=== PATIENT | female | born 1945 | race Caucasian/White ===

== ENCOUNTER 2018-06-07 13:28 | Emergency (ER) | payer MEDICARE ==
[~2018-06-07] VITALS: Ht 152.4 cm; Wt 53.1 kg
[~2018-06-07 13:28] MED LIST: AMIT25 PO; CALCA500CH PO; CHOL10002 PO; CITA20 PO; CLON1 PO; CYCL10 PO; DOXY100 PO; ERGO50000 PO; HYDACE10B PO; HYDACE5 PO; HYDCHL25 PO; LORA.5 PO; LORA1 PO; MECL25 PO; METO50 PO; OMEP20ER PO; OXYACE5T PO; OXYC5 PO; Omeprazole20 M1 PO; PARO20 PO; PARO30 PO; PRAV20 PO; RANI150 PO; RXALBOI INH; RXOXYACE PO; XARELTO15 MG PO; XARELTO20 MG PO
[2018-06-07 15:13] LABS: BASOPHILS ABSOLUTE AUTO 0.05 K/mm3 (0.00-0.23); BASOPHILS PERCENT AUTO 1 % (0-2); EOSINOPHILS PERCENT AUTO 7 % (0-6); Hematocrit 41.8 % (33.0-51.0); Hemoglobin 13.7 g/dL (11.5-16.0); IMMATURE GRAN ABSOLUTE AUTO 0.01 K/mm3 (0.00-0.10); IMMATURE GRAN PERCENT AUTO 0 % (0-1); LYMPHOCYTES ABSOLUTE AUTO 2.29 K/mm3 (0.84-5.20); LYMPHOCYTES PERCENT AUTO 38 % (21-46); MONOCYTES ABSOLUTE AUTO 0.57 K/mm3 (0.16-1.47); MONOCYTES PERCENT AUTO 10 % (4-13); Mean Corpuscular HGB 32.5 pg (26.0-34.0); Mean Corpuscular HGB Conc 32.8 g/dL (31.5-36.5); Mean Corpuscular Volume 99 fL (80-100); Mean Platelet Volume 10.8 fL (9.1-12.4); NEUTROPHILS ABSOLUTE AUTO 2.71 K/mm3 (1.96-9.15); NEUTROPHILS PERCENT AUTO 45 % (41-73); Platelet Count 217 K/mm3 (150-400); RDW Coefficient Variation 13.8 % (11.7-14.2); RDW Standard Deviation 49.9 fL (35.1-46.3); Red Blood Cell Count 4.21 M/mm3 (3.80-5.20); White Blood Cell Count 6.03 K/mm3 (4.00-11.30)
[2018-06-07 15:40] LABS: Troponin I <0.015 ng/mL (0.000-0.040)
[2018-06-07 15:41] LABS: Alanine Aminotransfer (ALT/SGP 17 U/L (12-78); Albumin, Blood 3.4 g/dL (3.4-5.0); Albumin/Globulin Ratio 1.1 (0.8-1.8); Alk Phos 67 U/L (50-136); Anion Gap 6 mmol/L (6-16); Aspartate Aminotrans (AST/SGOT 17 U/L (12-37); Bilirubin, Total 0.1 mg/dL (0.1-1.0); Blood Urea Nitrogen 26 mg/dL (8-24); Bun/Creatinine Ratio 28.9 (12.0-20.0); CO2, Blood 25 mmol/L (21-32); Calcium, Blood 8.6 mg/dL (8.5-10.1); Chloride, Blood 113 mmol/L (98-108); Globulin, Blood 3.1 g/dL (2.2-4.0); Glomerular Filtration Rate >60 (60-); Glucose, Blood 72 mg/dL (70-99); Potassium, Blood 3.7 mmol/L (3.5-5.5); Sodium, Blood 144 mmol/L (136-145); Total Protein, Blood 6.5 g/dL (6.4-8.2)
[2018-06-07] MEDS ORDERED: Buspirone HCl30 MG PO (15:54)
[2018-06-07] MEDS ORDERED: SPIR25 PO (15:54)
[2018-06-07] MEDS ORDERED: TOPI100 PO (15:54)
[2018-06-07] MEDS ORDERED: Ultram50 MG PO (16:14)
[2018-06-07] MEDS ORDERED: Keflex500 MG PO (16:14)
== END 2018-06-07 16:25 | disposition home or self-care (01) ==
LOC: ER 13:28
PROVIDERS: Physician Assistant
DX: L03.116 Cellulitis of left lower limb (principal); F17.210 Nicotine dependence, cigarettes, uncomplicated; I10 Essential (primary) hypertension; M81.0 Age-related osteoporosis without current pathological fracture; J44.9 Chronic obstructive pulmonary disease, unspecified; E78.5 Hyperlipidemia, unspecified; Z86.718 Personal history of other venous thrombosis and embolism; Z86.711 Personal history of pulmonary embolism; Z79.2 Long term (current) use of antibiotics; Z79.899 Other long term (current) drug therapy
CPT/HCPCS: 36415; 71046; 80053; 83880; 84484; 85025; 93005; 93010; 93970; 99284-25

== ENCOUNTER 2018-06-16 16:26 | Emergency (ER) | payer MEDICARE ==
[~2018-06-16] VITALS: Ht 160 cm; Wt 53.1 kg
[~2018-06-16 16:26] MED LIST changes: +Buspirone HCl30 MG PO; +Keflex500 MG PO; +SPIR25 PO; +TOPI100 PO; +Ultram50 MG PO
[2018-06-16] MEDS ORDERED: VERA80 PO (16:57)
[2018-06-16] MEDS ORDERED: Ferrous Sulfat325 M2 PO (16:58)
[2018-06-16] MEDS ORDERED: CHOL10002 (16:58)
[2018-06-16] MEDS ORDERED: Butalbital-Asa1 EAC1 (16:59)
[2018-06-16] MEDS ORDERED: ALEN70 PO (17:01)
[2018-06-16] MEDS ORDERED: BACL10 PO (17:01)
[2018-06-16 17:15] LABS: BASOPHILS ABSOLUTE AUTO 0.06 K/mm3 (0.00-0.23); BASOPHILS PERCENT AUTO 1 % (0-2); EOSINOPHILS ABSOLUTE AUTO 0.62 K/mm3 (0.00-0.68); EOSINOPHILS PERCENT AUTO 8 % (0-6); Hematocrit 42.7 % (33.0-51.0); Hemoglobin 14.1 g/dL (11.5-16.0); IMMATURE GRAN ABSOLUTE AUTO 0.02 K/mm3 (0.00-0.10); IMMATURE GRAN PERCENT AUTO 0 % (0-1); LYMPHOCYTES ABSOLUTE AUTO 2.13 K/mm3 (0.84-5.20); LYMPHOCYTES PERCENT AUTO 29 % (21-46); MONOCYTES ABSOLUTE AUTO 0.59 K/mm3 (0.16-1.47); MONOCYTES PERCENT AUTO 8 % (4-13); Mean Corpuscular HGB 32.3 pg (26.0-34.0); NEUTROPHILS ABSOLUTE AUTO 3.98 K/mm3 (1.96-9.15); NEUTROPHILS PERCENT AUTO 54 % (41-73); Platelet Count 249 K/mm3 (150-400); RDW Standard Deviation 50.8 fL (35.1-46.3); Red Blood Cell Count 4.37 M/mm3 (3.80-5.20)
[2018-06-16 17:30] LABS: Mean Corpuscular Volume 98 fL (80-100)
[2018-06-16 17:35] LABS: Alanine Aminotransfer (ALT/SGP 17 U/L (12-78); Albumin, Blood 3.4 g/dL (3.4-5.0); Albumin/Globulin Ratio 1.1 (0.8-1.8); Alk Phos 69 U/L (50-136); Anion Gap 7 mmol/L (6-16); Aspartate Aminotrans (AST/SGOT 13 U/L (12-37); Bilirubin, Total 0.1 mg/dL (0.1-1.0); Blood Urea Nitrogen 19 mg/dL (8-24); Bun/Creatinine Ratio 21.9 (12.0-20.0); CO2, Blood 22 mmol/L (21-32); Calcium, Blood 8.9 mg/dL (8.5-10.1); Chloride, Blood 114 mmol/L (98-108); Creatinine, Blood 0.87 mg/dL (0.40-1.00); Globulin, Blood 3.2 g/dL (2.2-4.0); Glomerular Filtration Rate >60 (60-); Glucose, Blood 83 mg/dL (70-99); Potassium, Blood 3.9 mmol/L (3.5-5.5); Sodium, Blood 143 mmol/L (136-145); Total Protein, Blood 6.6 g/dL (6.4-8.2); Troponin I <0.015 ng/mL (0.000-0.040)
== END 2018-06-16 18:10 | disposition home or self-care (01) ==
LOC: ER 16:26
PROVIDERS: Physician Assistant
DX: R06.00 Dyspnea, unspecified (principal); R60.0 Localized edema; I10 Essential (primary) hypertension; E78.5 Hyperlipidemia, unspecified; J44.9 Chronic obstructive pulmonary disease, unspecified; Z79.899 Other long term (current) drug therapy; F17.210 Nicotine dependence, cigarettes, uncomplicated
CPT/HCPCS: 36415; 71046; 80053; 83880; 84484; 85025; 93005; 93010; 94640; 99285-25

== ENCOUNTER → 2018-09-20 | Outpatient (CLI) | payer MEDICARE ==
[~2018-09-20] MED LIST changes: +ALEN70 PO; +BACL10 PO; +Butalbital-Asa1 EAC1; +CHOL10002; +Ferrous Sulfat325 M2 PO; +VERA80 PO
== END ==
LOC: LAB 07:00 → LAB SHORT 07:00
DX: R10.84 Generalized abdominal pain (principal); R19.7 Diarrhea, unspecified
CPT/HCPCS: 87015; 87045; 87046; 87205; 87899

== ENCOUNTER 2020-06-13 13:39 | Emergency (ER) | payer MEDICARE ==
[~2020-06-13] VITALS: Ht 160 cm; Wt 52.2 kg
== END 2020-06-13 17:26 | disposition home or self-care (01) ==
LOC: ER 13:39
DX: K59.00 Constipation, unspecified (principal); I10 Essential (primary) hypertension; E78.5 Hyperlipidemia, unspecified; J44.9 Chronic obstructive pulmonary disease, unspecified; F17.210 Nicotine dependence, cigarettes, uncomplicated; Z79.01 Long term (current) use of anticoagulants; Z79.899 Other long term (current) drug therapy; Z86.718 Personal history of other venous thrombosis and embolism
CPT/HCPCS: 74018; 99283-25; A9270

== ENCOUNTER 2021-07-09 22:19 | Emergency (ER) | payer MEDICARE ==
[~2021-07-09] VITALS: Ht 170.2 cm; Wt 53.1 kg
[2021-07-09] MEDS ORDERED: BACTRIM 400-801 EACH PO (22:48)
[2021-07-09] MEDS ORDERED: Mupirocin22 GM TOP (22:48)
[2021-07-09] MEDS ORDERED: CEPH500 PO (22:48)
== END 2021-07-09 23:06 | disposition home or self-care (01) ==
LOC: ER 22:19
DX: L03.012 Cellulitis of left finger (principal); I10 Essential (primary) hypertension; F17.210 Nicotine dependence, cigarettes, uncomplicated; Z79.899 Other long term (current) drug therapy
CPT/HCPCS: A9270

== ENCOUNTER 2021-08-04 13:49 | Emergency (ER) | payer MEDICARE ==
[~2021-08-04] VITALS: Ht 160 cm; Wt 53.1 kg
[~2021-08-04 13:49] MED LIST changes: +BACTRIM 400-801 EACH PO; +CEPH500 PO; +Mupirocin22 GM TOP
[2021-08-04] MEDS ORDERED: CEPH500 PO (16:00)
== END 2021-08-04 16:08 | disposition home or self-care (01) ==
LOC: ER 13:49
DX: L03.012 Cellulitis of left finger (principal); I10 Essential (primary) hypertension; E78.5 Hyperlipidemia, unspecified; J44.9 Chronic obstructive pulmonary disease, unspecified; F17.210 Nicotine dependence, cigarettes, uncomplicated; Z79.899 Other long term (current) drug therapy
CPT/HCPCS: 73140; 99283-25

== ENCOUNTER → 2022-01-03 | Outpatient (CLI) | payer MEDICARE | LOC: LAB SHORT 13:38 → LAB 13:38 | DX: L30.9 Dermatitis, unspecified (principal) | CPT/HCPCS: 88305; 88312 ==

== ENCOUNTER 2024-06-12 08:52 | Day surgery (SDC) | payer MEDICARE ==
[~2024-06-12] VITALS: Ht 160 cm; Wt 51.6 kg
[~2024-06-12 08:52] MED LIST changes: +Balanced Salt Epinephrine Irrigation Solution 500 mL IR SCH; +Buspirone HCl15 MG PO; +DULO60 PO; +FUROSEMIDE20 MG PO; +HYDROCODONE-AC1 EA10 PO; +K-Dur10 MEQ PO; +Lidocaine HCl/Pf 1% 5 ML VIAL XX SCH; +Moxifloxacin HCL 0.5 MG/0.1 ML 0.4MLSYR RIGHTEYE SCH; +Nicoderm Cq1 EAC1 TOP; +PHENYLEPHRINE\\TROPICAMIDE\\TETRACAINE OPHTHALMIC DILATING SOLN RIGHTEYE PRN; +Povidone-Iodine 450 DROP/30 ML Solution RIGHTEYE SCH; +Triamcinolone Inj Susp 40 MG / ML 1ML Vial INJ SCH; +Triamcinolone Inj Susp 40 MG / ML 1ML Vial ONE
[2024-06-12] MEDS ORDERED: Diazepam 2 MG Tab ONE (09:36)
[2024-06-12] MEDS ORDERED: VERA80 PO (09:52)
--- NOTE | 2024-06-12 10:16 | NUR ---
06/12/24 Nava Berger AFTER REASSESSING PT'S ANXIETY LEVEL, PT STATED THAT HER ANXIETY IS AT A 1/10. PT HAS CALL LIGHT NEXT TO HER, AND HER DAUGHTER AT SIDE OF BED. TIFFANIE.
[2024-06-12] MEDS ORDERED: Ondansetron HCl 2 MG / ML 2ML Vial ONE (10:51)
[2024-06-12 11:14] VITALS: BP 136/70
--- NOTE | 2024-06-12 11:34 | NUR ---
06/12/24 1134 Yareli Haider 1131: D/C INSTRUCTIONS GIVEN TO PT & PT'S DAUGHTER. ALL QUESTIONS ANSWERED & UNDERSTANDING VERBALIZED. PT GOING HOME W/ ALL BELONGINGS INCLUDING PERSONAL GLASSES & WALKER. PT REFUSED WC TO TRANSFER OUTSIDE & PT USING PERSONAL WALKER. STEADY GAIT NOTED UPON AMBULATION. NO VISIBLE SIGNG OF DISTRESS NOTED.
[2024-06-12] MEDS ORDERED: Povidone-Iodine 450 DROP/30 ML Solution XX ONE (18:47)
[2024-06-12] MEDS ORDERED: Tetracaine HCl/Pf 0.5% Opth Soln 4 ml XX ONE (18:47)
== END 2024-06-12 11:31 | disposition home or self-care (01) ==
LOC: ORSCSDS 08:52
PROVIDERS: Ophthalmology
PROC: 08RJ3JZ Replacement of Right Lens with Synthetic Substitute, Percutaneous Approach (ICD-10-PCS; principal; 2024-06-12 10:30)
DX: H25.813 Combined forms of age-related cataract, bilateral (principal); H21.81 Floppy iris syndrome; I10 Essential (primary) hypertension; J44.9 Chronic obstructive pulmonary disease, unspecified; Z87.891 Personal history of nicotine dependence; Z86.718 Personal history of other venous thrombosis and embolism; Z79.01 Long term (current) use of anticoagulants; Z79.899 Other long term (current) drug therapy
CPT/HCPCS: A9270; J2405; J3301; V2632

== ENCOUNTER 2024-09-18 12:30 | Emergency (ER) | payer MEDICARE ==
[~2024-09-18] VITALS: Ht 160 cm; Wt 47.6 kg
[~2024-09-18 12:30] MED LIST changes: -Balanced Salt Epinephrine Irrigation Solution 500 mL IR SCH; -Lidocaine HCl/Pf 1% 5 ML VIAL XX SCH; -Moxifloxacin HCL 0.5 MG/0.1 ML 0.4MLSYR RIGHTEYE SCH; -PHENYLEPHRINE\\TROPICAMIDE\\TETRACAINE OPHTHALMIC DILATING SOLN RIGHTEYE PRN; -Povidone-Iodine 450 DROP/30 ML Solution RIGHTEYE SCH; -Triamcinolone Inj Susp 40 MG / ML 1ML Vial INJ SCH; -Triamcinolone Inj Susp 40 MG / ML 1ML Vial ONE
[2024-09-18 12:43] VITALS: BP 130/64
== END 2024-09-18 13:42 | disposition home or self-care (01) ==
LOC: ER 12:30
DX: I74.3 Embolism and thrombosis of arteries of the lower extremities (principal); I10 Essential (primary) hypertension; E78.5 Hyperlipidemia, unspecified; J44.9 Chronic obstructive pulmonary disease, unspecified; F17.210 Nicotine dependence, cigarettes, uncomplicated; Z79.899 Other long term (current) drug therapy; Z88.1 Allergy status to other antibiotic agents
CPT/HCPCS: 99283